=== PATIENT | female | born 1970 | race Hispanic/Latino ===

== ENCOUNTER 2021-08-31 12:54 | Observation (INO) | payer OTHER ==
[~2021-08-31] VITALS: Ht 167.6 cm; Wt 89.2 kg
[2021-08-31 13:42] LABS: BASOPHILS % (AUTO) 0.4 % (0.0-5.0); EOSINOPHILS % (AUTO) 1.3 % (0.0-8.0); HEMATOCRIT 31.9 % (36-48); LYMPHOCYTES % (AUTO) 49.6 % (21.0-51.0); MEAN CORPUSCULAR HEMOGLOBIN 22.2 pg (27.0-33.0); MEAN CORPUSCULAR VOLUME 71.5 fL (79-99); MONOCYTES % (AUTO) 8.1 % (3.0-13.0); NEUTROPHILS % (AUTO) 39.4 % (40.0-77.0); PLATELET COUNT (AUTO) 178 K/uL (130-400); RED BLOOD CELL COUNT(AUTO) 4.46 MIL/uL (4.00-5.50); RED CELL DISTRIBUTION WIDTH 19.7 % (11.0-15.5); WHITE BLOOD COUNT (AUTO) 9.4 K/uL (4.8-10.8)
[2021-08-31 13:46] LABS: APPEARANCE,URINE Clear (CLEAR); BILIRUBIN,URINE Moderate (NEGATIVE); COLOR,URINE Dark Yellow (YELLOW); GLUCOSE, URINE (UA) Negative (NEGATIVE); KETONES,URINE 15 mg/dL (NEGATIVE); LEUKOCYTE ESTERASE ,URINE Trace (NEGATIVE); NITRATE,URINE Negative (NEGATIVE); OCCULT BLOOD,URINE Negative (NEGATIVE); PROTEIN,URINE Trace mg/dL (NEGATIVE)
[2021-08-31 13:51] LABS: BACTERIA,URINE Rare /HPF (None Seen); RBC,URINE 0-1 /HPF (0-1); SQUAMOUS EPITHELIAL CELL,UR Rare /HPF (0-2); WBC,URINE 0-1 /HPF (0-1)
[2021-08-31 13:52] LABS: CALCIUM OXALATE CRYSTALS,UR Few /LPF (None Seen)
[2021-08-31 13:57] LABS: CREATININE 0.8 mg/dL (0.5-1.5)
[2021-08-31 14:02] LABS: ALBUMIN 2.6 g/dL (3.5-5.0); BILIRUBIN,TOTAL 0.7 mg/dL (0.2-1.0); TOTAL PROTEIN, SERUM 7.4 g/dL (6.0-8.3)
[2021-08-31 15:50] VITALS: BP 106/55
[2021-08-31] MEDS ORDERED: ACETAMINOPHEN 325 MG TAB PO PRN (16:30)
[2021-08-31] MEDS ORDERED: HYDRALAZINE 20MG/ML VIAL IV PRN (16:30)
[2021-08-31] MEDS ORDERED: LACTULOSE 20 GM/30 ML UDCUP PO PRN (16:30)
[2021-08-31] MEDS ORDERED: ALBUTEROL 0.083% 2.5 MG/3 ML INH IH PRN (16:30)
[2021-08-31] MEDS ORDERED: LABETALOL 20MG SYG IV PRN (16:30)
[2021-08-31] MEDS: INSULIN HUMULIN R 100 UNIT/ML 3ML SQ SCH ×2 (16:30→21:00)
[2021-08-31] MEDS ORDERED: ONDANSETRON 4MG INJ IVP PRN (16:30)
[2021-08-31 20:16] VITALS: BP 104/50
[2021-08-31] MEDS ORDERED: 0.9% NACL 250ML 250 ML ONE (22:24)
[2021-08-31] MEDS: DOXYCYCLINE 100MG+NS 250ML IV SCH (22:28)
[2021-09-01 00:16] VITALS: BP 105/52
[2021-09-01 04:16] VITALS: BP 99/53
[2021-09-01 04:46] LABS: BASOPHILS % (AUTO) 0.7 % (0.0-5.0); EOSINOPHILS % (AUTO) 1.8 % (0.0-8.0); HEMATOCRIT 29.6 % (36-48); LYMPHOCYTES % (AUTO) 54.2 % (21.0-51.0); MEAN CORPUSCULAR HEMOGLOBIN 22.2 pg (27.0-33.0); MEAN CORPUSCULAR HGB CONC 31.1 g/dL (32.0-36.0); MEAN CORPUSCULAR VOLUME 71.5 fL (79-99); MONOCYTES % (AUTO) 8.6 % (3.0-13.0); NEUTROPHILS % (AUTO) 33.5 % (40.0-77.0); PLATELET COUNT (AUTO) 201 K/uL (130-400); RED BLOOD CELL COUNT(AUTO) 4.14 MIL/uL (4.00-5.50); RED CELL DISTRIBUTION WIDTH 19.4 % (11.0-15.5); WHITE BLOOD COUNT (AUTO) 7.6 K/uL (4.8-10.8)
[2021-09-01 05:18] LABS: CREATININE 0.7 mg/dL (0.5-1.5); MAGNESIUM 1.8 mg/dL (1.80-2.40); PHOSPHORUS 3.6 mg/dL (2.5-4.9); POTASSIUM 3.8 mmol/L (3.5-5.1)
[2021-09-01] MEDS: INSULIN HUMULIN R 100 UNIT/ML 3ML SQ SCH ×3 (06:12→16:28)
[2021-09-01 08:00] VITALS: BP 106/52
[2021-09-01] MEDS ORDERED: ENOXAPARIN SODIUM 30 MG/0.3 ML SQ SCH (09:00)
[2021-09-01] MEDS ORDERED: PANTOPRAZOLE 40 MG TAB DR PO SCH (09:00)
[2021-09-01] MEDS ORDERED: 0.9% NACL 250ML 250 ML ONE (09:27)
[2021-09-01] MEDS: DOXYCYCLINE 100MG+NS 250ML IV SCH (09:28)
[2021-09-01 11:45] VITALS: BP 99/54
[2021-09-01 13:17] LABS: % IRON SATURATION 14.6 % (22-44)
[2021-09-01] MEDS ORDERED: FERR-72 PO (15:51)
[2021-09-01] MEDS ORDERED: DOXY100C5 PO (15:51)
[2021-09-01] MEDS ORDERED: ASCO500T19 PO (15:51)
[2021-09-01] MEDS ORDERED: DOCU240C25 PO (15:51)
[2021-09-01 16:00] VITALS: BP 117/64
== END 2021-09-01 18:45 | disposition home or self-care (01) ==
LOC: EDH 12:54 → INTOOBSV 12:55 → EDHIP 12:55 → 3DH 14:42
PROVIDERS: ADMIT Internal Medicine Pulmonary Disease; ATTEND Internal Medicine Pulmonary Disease
DX: A75.9 Typhus fever, unspecified (principal); Z20.822 Contact with and (suspected) exposure to COVID-19; E66.9 Obesity, unspecified; R73.03 Prediabetes; D50.9 Iron deficiency anemia, unspecified; I10 Essential (primary) hypertension; Z79.899 Other long term (current) drug therapy
CPT/HCPCS: 36415 ×2; 71045; 71250; 76700; 80048; 80053; 81001; 82948 ×5; 83540; 83550; 83605 ×2; 83735; 83883; 84100; 84145; 85025 ×2; 86334; 86757; 87040 ×2; 87088; 87635; 87804 ×2; 96365; 96366 ×2; 96372; G0378 ×26; J1650; J3490 ×2; J7050 ×2